=== PATIENT | female | born 1985 | race Caucasian/White ===

== ENCOUNTER 2020-07-22 12:42 | Outpatient (CLI) | payer OTHER ==
[2020-07-22 13:23] LABS: Basophils % (Auto) 0.6 % (0.0-1.8); Eosinophils # (Auto) 0.1 K/mm3 (0.0-0.4); Hematocrit 43.4 % (30.3-42.9); Hemoglobin 14.7 gm/dl (10.1-14.3); Lymphocytes # (Auto) 2.1 K/mm3 (1.2-5.4); Lymphocytes % (Auto) 38.7 % (13.4-35.0); Mean Corpuscular HGB Conc 34 % (30-34); Mean Corpuscular Volume 95 fl (79-97); Monocytes # (Auto) 0.4 K/mm3 (0.0-0.8); Monocytes % (Auto) 7.4 % (0.0-7.3); Platelet Count 182 K/mm3 (140-440); Red Blood Count 4.57 M/mm3 (3.65-5.03); Red Cell Distribution Width 13.1 % (13.2-15.2)
[2020-07-22 13:43] LABS: % Iron Saturation 28.27 %; Alanine Aminotransferase 19 units/L (7-56); Albumin 4.3 g/dL (3.9-5); Blood Urea Nitrogen 14 mg/dL (7-17); Calcium 9.4 mg/dL (8.4-10.2); Hemolysis Index 5; Iron 95 ug/dL (37-170); LDL Cholesterol,Direct 120 mg/dL (50-130); Total Iron Binding Capacity 336 mcg/dL (250-450)
[2020-07-22 13:44] LABS: BUN/Creatinine Ratio 20
[2020-07-22 14:54] LABS: Chol/HDL Ratio 3.52 %; HDL Cholesterol 50 mg/dL (40-59)
[2020-07-24 16:39] LABS: Vitamin D, 25-OH, D2 <4 ng/mL
== END 2020-07-22 12:43 | disposition home or self-care (01) ==
LOC: LAB 12:42
PROVIDERS: ATTEND Surgery
DX: E11.9 Type 2 diabetes mellitus without complications (principal); E66.01 Morbid (severe) obesity due to excess calories; K30 Functional dyspepsia; Z98.84 Bariatric surgery status
CPT/HCPCS: 36415; 80053; 80061; 82306; 82607; 82728; 83036; 83550; 84425; 84443; 85025

== ENCOUNTER 2020-08-15 09:27 | Outpatient (CLI) | payer OTHER ==
--- NOTE | 2020-08-15 10:54 | Electrocardiograph Report ---
[facility] Test Date: 2020-08-15 Test Time: 10:22:46 Pat [facility]: Gender: F Hall Monitor: BEBE : 1985 Requested By: CHAPINCITO JEFFRIES Order Number: [id number] Reading MD: Nestor Estrdaa Measurements Intervals [place] Rate: 68 P: 34 VT: 127 QRS: -1 QRSD: 93 T: -6 QT: 394 QTc: 419 Interpretive Statements Sinus rhythm No previous ECG available for comparison Electronically Signed On 08-15-2020 10:54:27 EDT by Nestor Estrada
--- NOTE | 2020-08-15 14:25 | Treadmill Report ---
DATE OF SERVICE: 08/15/2020 TREADMILL STRESS TEST Preop baseline EKG, sinus rhythm, T-wave inversion in inferior leads. Baseline heart rate 71, blood pressure 120/73. DESCRIPTION OF PROCEDURE: The patient exercised for a Rayshawn protocol for 9 minutes. The patient achieved a maximum heart rate 91%, which is 181 beats per minute. Max blood pressure 156/78. There were no EKG changes suggestive of ischemia, stopped secondary to shortness of breath. SUMMARY: 1. Negative treadmill EKG. 2. Good exercise capacity 9 minutes Rayshawn protocol. 3. No exaggerated BP response to exercise. 4. No EKG changes or arrhythmias suggestive of any ischemia. TID: [id number] RECEIPT: [id number] COURTNEY/AMILCAR
--- NOTE | 2020-08-23 10:35 | Treadmill Report ---
[facility] Test Date: 2020-08-15 Test Time: 10:52:00 [facility]: Room: Gender: F Cloth Handler: Lilian Rico : 1985 Requested By: CHAPINCITO JEFFRIES Order Number: [id number] Reading MD: Joe Mujica Interpretive Statements Electronically Signed On 08-23-2020 10:35:25 EDT by Joe Mujica
== END 2020-08-15 09:28 | disposition home or self-care (01) ==
LOC: CARD 09:27
PROVIDERS: ATTEND Surgery
DX: Z01.818 Encounter for other preprocedural examination (principal)
CPT/HCPCS: 93005; 93017

== ENCOUNTER 2020-11-21 07:16 | Outpatient (CLI) | payer OTHER ==
--- NOTE | 2020-11-21 09:05 | Fluoroscopy Report ---
. Barium swallow Indication: MORBID OBESITY. Technique: Single and double contrast barium technique utilized to evaluate the esophagus. Findings: No mucosal irregularity, mass, mass effect, or critical stenosis. There were mild abnormal tertiary contractions as seen with dysmotility. No gastroesophageal reflux. Impression: Mild esophageal dysmotility but no appreciable reflux or other abnormality. Fluoroscopic time: 0.7 minutes Number of fluoroscopic images: 8 Signer Name: Horacio Sherman MD Signed: 11/21/2020 9:00 AM Workstation Name: [id number]
== END 2020-11-21 07:17 | disposition home or self-care (01) ==
LOC: FLUORO 07:16
PROVIDERS: ATTEND Surgery
DX: E66.01 Morbid (severe) obesity due to excess calories (principal)
CPT/HCPCS: 74220

== ENCOUNTER → 2020-12-10 | Outpatient (CLI) | payer OTHER | END | disposition home or self-care (01) | LOC: SLR 11:00 | PROVIDERS: ATTEND Surgery | DX: G47.30 Sleep apnea, unspecified (principal) | CPT/HCPCS: G0399 ==

== ENCOUNTER 2021-02-02 08:18 | Observation (INO) | payer OTHER ==
[2021-01-30 10:20] LABS: Hematocrit 43.1 % (30.3-42.9); Hemoglobin 14.1 gm/dl (10.1-14.3); Mean Corpuscular HGB Conc 33 % (30-34); Mean Corpuscular Volume 95 fl (79-97); Platelet Count 207 K/mm3 (140-440); Red Blood Count 4.55 M/mm3 (3.65-5.03); Red Cell Distribution Width 12.9 % (13.2-15.2)
[2021-01-30 10:36] LABS: Alanine Aminotransferase 24 units/L (7-56); Albumin 4.6 g/dL (3.9-5); BUN/Creatinine Ratio 28; Blood Urea Nitrogen 17 mg/dL (7-17); Calcium 9.2 mg/dL (8.4-10.2); Hemolysis Index 5
--- NOTE | 2021-01-30 13:36 | Anesthesia Consultation ---
Anesthesia Consult and Med Hx Date of service: 02/02/21 - Airway Anesthetic Teeth Evaluation: Chipped (Missing) ROM Head & Neck: Adequate Mental/Hyoid Distance: Adequate Mallampati Class: Class II Intubation Access Assessment: Good - Pre-Operative Health Status ASA Pre-Surgery Classification: ASA3 Proposed Anesthetic Plan: General - Pulmonary Hx Sleep Apnea: Yes (Waiting for CPAP) - Central Nervous System Hx Psychiatric Problems: No - Gastrointestinal Hx Gastroesophageal Reflux Disease: No - Endocrine Hx Non-Insulin Dependent Diabetes: No - Other Systems Hx Alcohol Use: Yes (Occas) Hx Cancer: No Hx Obesity: Yes - Additional Comments Anesthesia Medical History Comments: Malagasy speaking; daughter present to interpret. Chart reviewed-cardiac/pulmonary/psych
[2021-02-02] MEDS: ACETAMINOPHEN IV 1,000 MG/100 ML BOTTLE IV NR ×2 (07:30→21:00)
[~2021-02-02 08:18] MED LIST: BUPIVACAINE/PF (0.25%) 2.5 MG/ML 30 ML VIAL INFILTRATI ONE; ENOXAPARIN 40 MG/0.4 ML INJ SUB-Q NR; GABAPENTIN 500 MG/10 ML ORAL LIQD PO NR; HYDROmorphone 1 MG/1 ML INJ IV PRN; KETAMINE/STERILE WATER 50 MG/ML SYRINGE ONE; LACTATED RINGERS 1,000 ML IV SCH; LIDOCAINE 1%/EPINEPHRINE 1:100,000 VIAL (20 ML) INFILTRATI ONE; LIDOCAINE MPF (2%) 20 MG/1 ML VIAL 5 ML ONE; MAGNESIUM SULFATE 4 GM/100 ML BAG IV ONE; ONDANSETRON 4 MG/2 ML INJ IV PRN; PIPERACIL/TAZOBACTA 4.5/NS 100 4.5 GM/100 ML VIAL IV SCH; ROCURONIUM 50 MG/5 ML INJ IV ONE; SCOPOLAMINE TRANSDERMAL PATCH 72 HR TD ONE; SODIUM CHLORIDE P/F VIAL 10 ML 10 ML ONE; SUGAMMADEX SODIUM 200 MG/2 ML VIAL IV ONE; dexAMETHasone 20 MG/5 ML VIAL ONE; methOCARBAMOL 1,000 MG in SODIUM CHLORIDE 0.9% 250ML 250 ML IV ONE
[2021-02-02] MEDS ORDERED: LIDOCAINE 1%/EPINEPHRINE 1:100,000 VIAL (20 ML) INFILTRATI ONE (08:32)
[2021-02-02] MEDS ORDERED: BUPIVACAINE/PF (0.25%) 2.5 MG/ML 30 ML VIAL INFILTRATI ONE (08:34)
[2021-02-02] MEDS ORDERED: SODIUM CHLORIDE 0.9% IRR 1,500 ML BOTTLE IR ONE (08:34)
[2021-02-02] MEDS ORDERED: ONDANSETRON 4 MG/2 ML INJ ONE (08:48)
[2021-02-02] MEDS ORDERED: dexAMETHasone 20 MG/5 ML VIAL ONE (08:48)
--- NOTE | 2021-02-02 09:16 | Anesthesia Day of Surgery ---
Anesthesia Day of Surgery - Day of Surgery Patient Examined: Yes Patient H&P Reviewed: Yes Patient is NPO: Yes
[2021-02-02] MEDS ORDERED: SODIUM CHLORIDE P/F VIAL 10 ML 10 ML ONE (09:36)
[2021-02-02] MEDS ORDERED: SCOPOLAMINE TRANSDERMAL PATCH 72 HR TD SCH (10:00)
--- NOTE | 2021-02-02 10:08 | Operative Report ---
Operative Report Operative Report: DATE:02/02/2021 Surgeon: El Ramos MD Audio Tape Librarian surgeon: Pam White CSA MD Pre-op Dx: morbid obesity Post-op Dx: morbid obesity Procedure: 1. laparoscopic sleeve gastrectomy, Anesthesia: GETA, TAP block EBL: <10ml Specimen: gastric remnant Complication: none immediate Indication: 35 year old female with a history of morbid obesity . Pt is here for sleeve gastrectomy for weight loss to achieve healthier weight. She expressed understanding of the risks and benefits. PROCEDURE IN DETAIL: After consent was reviewed, patient was taken back to the operating room, where patient was placed supine on the bed with both arms out. The patient's legs were doubly strapped to the bed. Patient had a foot board in place. Patient had a body warmer placed by anesthesia. General anesthesia was induced with successful endotracheal intubation. Patient was then prepped and draped in normal sterile surgical fashion. After a time-out was called, I made a stab incision in the left subcostal area and placed a Veress needle through this incision and insufflated the abdomen to 15 mmHg pressure. I then counted down a handsbreadth below the xiphoid process in the midline and slightly left lateral injected local anesthetic and made about 1 cm transverse incision. I then used a 5-mm Optiview trocar to enter into the abdomen. There was no gross injury to any intra-abdominal structures. I then placed a 30-degree scope through this port and inspected the abdomen. I then placed a 5-mm port in the right upper quadrant, and 1 epigastric area below the costovertebral angle. I then placed a 15-mm port about a handsbreadth in the right mid abdomen. After which a 5mm port was placed in left upper quadrant port along the anterior axillary line in a similar fashion. A liver retractor was placed to the epigastric port to elevate the left lateral lobe and liver. The anterior gastric fat pad was excised. Starting approximately 6 cm proximal to the pylorus, using a LigaSure device the short gastrics were taken all the way to the left gabrielle. Once the lateral portion of the stomach was mobile anesthesia passed a 40 Greek bougie along the medial aspect to act as a stent. Using serial firings of endoscopic stapler green, followed by 4 blue, the lateral portion of the stomach was transected making sure to did not close to the 2 cm to the incisura. All staple loads were supported with Ethicon buttress strips. The sleeve stomach was seen to be without kink obstruction or twisting. The pressure was decreased to 10 mmHg. The staple line was inspected for approximately 5 minutes. There was no significant bleeding appreciated except for a slight loose at the most distal portion of the staple line. Bleeding was minimal and easily controlled with minimal cautery. The liver retractor was removed. This was after the gastric remnant was grasped and pulled into the 15 mm trocar site. The stomach was extracted via the 15 mm trocar site. After the fascia had to be stretched with a Catina clamp to easily remove the stomach, the fascia was closed using a kristyn karina device at the level of the fascia with an 0 PDS. trocars were removed under direct visualization. A TAP block was performed in transverse abdominis plane at the mid axillary line bilaterally using 60cc of 0.25% marcaine. All skin incisions were closed with 4-0 Monocryl followed by Dermabond. Patient was awoken, extubated, and taken to recovery stable condition. All counts were correct.
[2021-02-02] MEDS ORDERED: hydrALAZINE 20 MG/1 ML INJ IV PRN (11:00)
[2021-02-02] MEDS ORDERED: HYDROmorphone 1 MG/1 ML INJ IV PRN (11:00)
[2021-02-02] MEDS ORDERED: ONDANSETRON 4 MG/2 ML INJ IV PRN (11:00)
[2021-02-02] MEDS ORDERED: MORPHINE 2 MG/1 ML INJ IV PRN (11:00)
[2021-02-02] MEDS ORDERED: SIMETHICONE 80 MG CHEW TAB PO PRN (11:00)
[2021-02-02] MEDS ORDERED: HYDROcodone/Acetaminophen 7.5-325MG-15ML ORAL LIQD PO PRN (11:00)
[2021-02-02] MEDS ORDERED: METOCLOPRAMIDE 10 MG/2 ML INJ IV PRN (11:00)
[2021-02-02] MEDS: KETOROLAC 30 MG/1 ML INJ IV SCH ×3 (11:23→23:52)
--- NOTE | 2021-02-02 13:03 | Post Anesthesia Evaluation ---
- Post Anesthesia Evaluation Patient Participated: Yes Airway Patent: Yes Stable Respiratory Function: Yes Nausea/Vomiting: No Temp > 96.8F: Yes Pain Manageable: Yes Adequeate Hydration: Yes Anesthesia Complications: No
[2021-02-02] MEDS: PANTOPRAZOLE 40 MG INJ IV SCH (13:38)
[2021-02-02] MEDS: ACETAMINOPHEN IV 1,000 MG/100 ML BOTTLE IV SCH ×2 (14:05→20:53)
[2021-02-02] MEDS: PIPERACILLIN/TAZOBACTAM 3.375 3.375 GM/50 ML BAG IV SCH ×2 (14:23→22:19)
[2021-02-03] MEDS: ACETAMINOPHEN IV 1,000 MG/100 ML BOTTLE IV SCH ×2 (02:25→08:29)
[2021-02-03] MEDS: KETOROLAC 30 MG/1 ML INJ IV SCH ×4 (04:53→22:11)
[2021-02-03] MEDS: LACTATED RINGERS 1,000 ML IV SCH ×3 (04:55→22:13)
[2021-02-03] MEDS: PIPERACILLIN/TAZOBACTAM 3.375 3.375 GM/50 ML BAG IV SCH (05:38)
[2021-02-03 07:34] LABS: Basophils % (Auto) 0.3 % (0.0-1.8); Hemoglobin 13.8 gm/dl (10.1-14.3); Lymphocytes # (Auto) 1.2 K/mm3 (1.2-5.4); Lymphocytes % (Auto) 10.4 % (13.4-35.0); Mean Corpuscular HGB Conc 32 % (30-34); Mean Corpuscular Volume 96 fl (79-97); Monocytes # (Auto) 0.9 K/mm3 (0.0-0.8); Monocytes % (Auto) 7.9 % (0.0-7.3); Platelet Count 187 K/mm3 (140-440); Red Cell Distribution Width 13.5 % (13.2-15.2)
[2021-02-03 08:00] LABS: Alanine Aminotransferase 25 units/L (7-56); Blood Urea Nitrogen 6 mg/dL (7-17); Calcium 8.7 mg/dL (8.4-10.2); Hemolysis Index 8
[2021-02-03 08:33] LABS: BUN/Creatinine Ratio 9
[2021-02-03] MEDS: ENOXAPARIN 40 MG/0.4 ML INJ SUB-Q SCH (09:21)
[2021-02-03] MEDS: PANTOPRAZOLE 40 MG INJ IV SCH (09:21)
--- NOTE | 2021-02-03 09:25 | Post Anesthesia Evaluation ---
- Post Anesthesia Evaluation Patient Participated: Yes Airway Patent: Yes Stable Respiratory Function: Yes Nausea/Vomiting: No Temp > 96.8F: Yes Pain Manageable: Yes Adequeate Hydration: Yes Anesthesia Complications: No Block Receding Appropriately: Not Applicable Patient on Ventilator: No Other Comments: Ambulated, pain is well under control
--- NOTE | 2021-02-03 12:52 | Discharge Summary ---
Providers - Providers Date of Admission: 02/02/21 08:20 Date of discharge: 02/04/21 Attending physician: CHAPINCITO JEFFRIES MD 02/02/21 09:45 Physical Therapy Evaluation and Treat [CONS] Routine Comment: Reason For Exam: post op bariatric Primary care physician: JEREMY RAMIREZ Hospitalization Reason for admission: s/p bariatric surgery Condition: Good Procedures: lap gastric sleeve Hospital course: pt had an uneventful laparoscopic gastric sleeve. She was admitted afterwards f or observation and follow up care. She remained afebrile and stable with her vital and labs within acceptable limits. She was tolerating clear liquids better by postoperative day 2, she was ambulating well with adequate pain control. She was discharged to home on postoperative day #2 with no gross clinical signs of leak or bleeding. Patient will follow up in the office within 2 weeks Disposition: 01 HOME / SELF CARE / HOMELESS Final Discharge Diagnosis (Prints w/discharge instructions): morbid obesity, MORENO Core Measure Documentation - Palliative Care Palliative Care/ Comfort Measures: Not Applicable - Core Measures Any of the following diagnoses?: none Exam - Constitutional Vitals: Temp Pulse Resp BP Pulse Ox 98.6 F 92 H 18 141/88 100 02/03/21 08:01 02/03/21 08:01 02/03/21 08:01 02/03/21 08:01 02/03/21 08:01 General appearance: Present: no acute distress - EENT Eyes: Present: PERRL - Neck Neck: Present: supple - Respiratory Respiratory effort: normal - Cardiovascular Heart Sounds: Present: S1 & S2 - Extremities Extremities: no ischemia - Abdominal General gastrointestinal: Present: other (soft, appropriately tender to palpation, incisions c/d/i) Plan Activity: advance as tolerated Diet: clear liquids Wound: open to air, keep clean and dry Follow up with: JEREMY RAMIREZ MD [Primary Care Provider] - 7 Days
--- NOTE | 2021-02-03 15:56 | Progress Note ---
Assessment and Plan POD#1 s/p lap gastric sleeve. Afebrile and stable but not drinking enough to feel comfortable to discharge today. If does well overnight will discharge tomorrow. Encourage small more frequent sips of liquids. Subjective Date of service: 02/03/21 Narrative: no acute events overnight. Pt says she feels ok but she is not drinking enough, likely due to discomfort she feels. Denies n/v. Objective Vital Signs - 12hr 02/03/21 02/03/21 02/03/21 04:27 08:01 11:57 Temperature 98.6 F 98.8 F Pulse Rate 92 H 98 H Respiratory 18 18 Rate Blood Pressure 141/88 148/94 O2 Sat by Pulse 99 100 98 Oximetry - General physical appearance no distress, no pain - Eyes PERRL - ENT no hearing loss - Respiratory normal expansion, normal respiratory effort - Abdomen other (incisions c/d/i, appropriately tender to palpation ) - Labs 02/03/21 06:37 02/03/21 06:37 Diabetes panel 02/03/21 Range/Units 06:37 Sodium 137 (137-145) mmol/L Potassium 4.5 (3.6-5.0) mmol/L Chloride 104.3 (98-107) mmol/L Carbon Dioxide 17 L (22-30) mmol/L BUN 6 L (7-17) mg/dL Creatinine 0.7 (0.6-1.2) mg/dL Glucose 89 (65-100) mg/dL Calcium 8.7 (8.4-10.2) mg/dL AST 28 (5-40) units/L ALT 25 (7-56) units/L Alkaline Phosphatase 50 (35-129) units/L Total Protein 6.9 (6.3-8.2) g/dL Albumin 4.0 (3.9-5) g/dL Calcium panel 02/03/21 Range/Units 06:37 Calcium 8.7 (8.4-10.2) mg/dL Albumin 4.0 (3.9-5) g/dL Pituitary panel 02/03/21 Range/Units 06:37 Sodium 137 (137-145) mmol/L Potassium 4.5 (3.6-5.0) mmol/L Chloride 104.3 (98-107) mmol/L Carbon Dioxide 17 L (22-30) mmol/L BUN 6 L (7-17) mg/dL Creatinine 0.7 (0.6-1.2) mg/dL Glucose 89 (65-100) mg/dL Calcium 8.7 (8.4-10.2) mg/dL Adrenal panel 02/03/21 Range/Units 06:37 Sodium 137 (137-145) mmol/L Potassium 4.5 (3.6-5.0) mmol/L Chloride 104.3 (98-107) mmol/L Carbon Dioxide 17 L (22-30) mmol/L BUN 6 L (7-17) mg/dL Creatinine 0.7 (0.6-1.2) mg/dL Glucose 89 (65-100) mg/dL Calcium 8.7 (8.4-10.2) mg/dL Total Bilirubin 0.40 (0.1-1.2) mg/dL AST 28 (5-40) units/L ALT 25 (7-56) units/L Alkaline Phosphatase 50 (35-129) units/L Total Protein 6.9 (6.3-8.2) g/dL Albumin 4.0 (3.9-5) g/dL
[2021-02-04] MEDS: KETOROLAC 30 MG/1 ML INJ IV SCH (04:27)
[2021-02-04] MEDS: LACTATED RINGERS 1,000 ML IV SCH (04:31)
[2021-02-04 06:56] LABS: Basophils % (Auto) 0.3 % (0.0-1.8); Hemoglobin 13.1 gm/dl (10.1-14.3); Lymphocytes # (Auto) 1.5 K/mm3 (1.2-5.4); Lymphocytes % (Auto) 19.2 % (13.4-35.0); Mean Corpuscular HGB Conc 33 % (30-34); Mean Corpuscular Volume 94 fl (79-97); Monocytes # (Auto) 0.5 K/mm3 (0.0-0.8); Monocytes % (Auto) 6.7 % (0.0-7.3); Platelet Count 167 K/mm3 (140-440); Red Blood Count 4.25 M/mm3 (3.65-5.03); Red Cell Distribution Width 13.2 % (13.2-15.2)
--- OUTSIDE RECORDS SUMMARY | 2021-02-04 07:09 | External Medical Summary ---
:1985 Author Organization [facility], [facility] Address [address] [address] Care Team Providers Name Role Phone El Ramos Unavailable [phone] PROBLEMS Type Condition ICD9-CM ZLE46-EU Onset Condition W/U Status Risk SNOM ED Notes Code Code Dates Status Code Problem Functional K30 Active confirmed [id number] dyspepsia Problem Sleep G47.9 Active confirmed 76821313 disorder, unspecified Problem Vitamin D E55.9 Active confirmed 57227777 deficiency, unspecified Problem Sleep apnea, G47.30 Active confirmed 3200679 6 unspecified Problem Morbid E66.01 Active confirmed 978502913 (severe) obesity due to excess calories Problem Body mass Z68.36 Active confirmed 8310469549 index [BMI] 70518 36.0-36.9, adult Problem Dietary Z71.3 Active confirmed 126341632 counseling and surveillance Problem Hyperlipidemi E78.5 Active confirmed 816581 04 a, unspecified ALLERGIES No Known Allergies ENCOUNTERS from 1985 to 2021-01-30 Encounter Location Date Provider Diagnosis [facility] Dec, El Ramos Morbi d (severe) [address] obesity due to excess of [facility] [place], [place] calorie s E66.01 and [id number] Sleep apnea, unspecified G47 .30 IMMUNIZATIONS No Information SOCIAL HISTORY Tobacco Use: Social History Observation Description Date Details (start date - stop date) Never Smoker Sex Assigned At : Social History Observation Description Sex Assigned At Unknown Smoking Question Answer Notes Are you a: never smoker REASON FOR REFERRAL from 1985 to 2021-01-30 Reason Gastric Sleeve Diagnosis 1 Morbid (severe) obesity due to excess calories (E66.01) Diagnosis 2 Functional dyspepsia (K30) Diagnosis 3 Sleep disorder, unspecified (G47.9) Diagnosis 4 Vitamin D deficiency, unspec ified (E55.9) Diagnosis 5 Hyperlipidemia, unspecified (E78.5) Diagnosis 6 Dietary counseling and surve illance (Z71.3) Diagnosis 7 Body mass index [BMI] 36.0-3 6.9, adult (Z68.36) Diagnosis 8 Elevated blood-pressure read ing, without diagnosis of hypertension (R03.0) Diagnosis 9 Sleep apnea, unspecified (G4 7.30) Referral Organization [facility] Referring Provider First Name El Referring Provider Last Name Richard Referring Provider Specialty Surgery Referred Provider [facility], - Referral Priority Routine VITAL SIGNS Height 59 in Dec, Weight 177.0 lbs Dec, Temperature 98 degrees Fahrenheit Dec, BMI 35.75 kg/m2 Dec, Blood pressure systolic 124 mm Hg Dec, Blood pressure diastolic 90 mm Hg Dec, MEDICATIONS Medication SIG (Take, Route, Notes Start Date End Date Status Frequency, Duration) Fluticasone Propionate 1 spray in each nostril Oct, Active 50 MCG/ACT Nasally Twice a day for 14 day(s) HYDROcodone-Acetaminophe 15 ml as needed orally Dec, 21 5 Jan, 2021 Active n 7.5-325 MG/15ML every 6 hrs for 7 days Ondansetron 4 MG 1-2 tablet on the Dec, Active tongue and allow to dissolve Orally q 4-6 hours prn nausea for 30 day(s) Vitamin D 1 capsule Orally once a A ctive (Ergocalciferol) 1.25 MG week for 90 days (10[address] UT) Omeprazole 40 MG 1 capsule 30 minutes Dec, Active before morning meal Orally Once a day for 30 day(s) PROCEDURES No Information RESULTS No Results REASON FOR VISIT preop sleeve MEDICAL (GENERAL) HISTORY Type Description Date Medical History htn Medical History hyperlipidemia Medical History High blood pressure Medical History Chicken pox Medical History High cholesterol Medical History Vision Problem Medical History mumps Surgical History No know Surgical history Goals Section No Information Health Concerns No Information MEDICAL EQUIPMENT No Information MENTAL STATUS No Information FUNCTIONAL STATUS No Information ASSESSMENTS Encounter Date Diagnosis Assessment Notes Treatment Notes Treatm ent Clinical Notes Dec, Morbid (severe) An hour was spent obesity due to with patient excess calories reinforcing diet, (ICD-10 - E66.01) vitamin requirements and lifestyle education, A quiz was administered and reviewed to verify understanding of intended procedure and post operative care. Consent forms were reviewed with patient and signed answering all questions, Pre-operative labs were ordered. Dec, Sleep apnea, Continue use of CPAP unspecified machine, should (ICD-10 - G47.30) resolve or greatly improve after weight loss surgery, and will titrate CPAP machine as tolerated. PLAN OF TREATMENT Medication Medication Name Sig Start Date Stop Date Omeprazole 40 MG 1 capsule 30 minutes before Dec, morning meal Orally Once a day for 30 day(s) Ondansetron 4 MG 1-2 tablet on the tongue and Dec, allow to dissolve Orally q 4-6 hours prn nausea for 30 day(s) HYDROcodone-Acetaminophen 15 ml as needed orally every Dec, 2 021 5 Jan, 2021 7.5-325 MG/15ML 6 hrs for 7 days Treatment Notes Assessment Notes Clinical Notes Morbid (severe) obesity due to An hour was spent with patien t excess calories reinforcing diet, vitamin requirements and lifestyle education, A quiz was administered and reviewed to verify understanding of intended procedure and post operative care. Consent forms were reviewed with patient and signed answering all questions, Pre-operative labs were ordered. Sleep apnea, unspecified Continue use of CPAP machine, shoul d resolve or greatly improve after weight loss surgery, and will titrate CPAP machine as tolerated. Referrals Referral Date Details Gastric Sleeve Next Appt Details for surgery Reason: Provider Name:El Ramos, 2020-11-0 8 09:30:00 AM, [address] [facility], [place], [place], [address], Insurance Providers Payer Name Payer Payer Insured Name Patient Coverage Covera ge End Address Phone Relationship to Start Date Arturo e Insured [employer] [address] [address] [phone] [place] [address] [place] [facility] [address] [id number] [address]
[2021-02-04 07:15] LABS: Alanine Aminotransferase 18 units/L (7-56); Albumin 3.6 g/dL (3.9-5); BUN/Creatinine Ratio 10; Blood Urea Nitrogen 5 mg/dL (7-17); Calcium 8.6 mg/dL (8.4-10.2); Hemolysis Index 1
[2021-02-04 08:28] VITALS: BP 117/70
[2021-02-04] MEDS: ENOXAPARIN 40 MG/0.4 ML INJ SUB-Q SCH (10:55)
[2021-02-04] MEDS: PANTOPRAZOLE 40 MG INJ IV SCH (10:56)
== END 2021-02-04 14:20 | disposition home or self-care (01) ==
LOC: OR 08:18 → 4A 08:20 → INTOOBSV 08:20
PROVIDERS: ADMIT Surgery; ATTEND Surgery
DX: E66.01 Morbid (severe) obesity due to excess calories (principal); Z20.822 Contact with and (suspected) exposure to COVID-19; K21.9 Gastro-esophageal reflux disease without esophagitis; I10 Essential (primary) hypertension; G47.30 Sleep apnea, unspecified; E78.5 Hyperlipidemia, unspecified; E78.00 Pure hypercholesterolemia, unspecified; H53.9 Unspecified visual disturbance; B26.9 Mumps without complication; Z68.38 Body mass index [BMI] 38.0-38.9, adult; Z79.899 Other long term (current) drug therapy; Z98.890 Other specified postprocedural states; Z98.84 Bariatric surgery status
CPT/HCPCS: 36415; 43775; 80053; 84703; 85025; 85027; 88307; 88342; 96365; 96366; 96367; 96372; 96375; 96376; C9113; G0378; J0131; J0360; J1100; J1650; J1885; J2405; J2543; J2704; J2800; J3475; J3490; J7050; J7120; U0003

== ENCOUNTER 2021-03-02 10:39 | Outpatient (CLI) | payer OTHER ==
[2021-03-02 11:23] LABS: Basophils # (Auto) 0.1 K/mm3 (0.0-0.1); Basophils % (Auto) 1.1 % (0.0-1.8); Eosinophils % (Auto) 0.9 % (0.0-4.3); Hematocrit 45.6 % (30.3-42.9); Hemoglobin 14.7 gm/dl (10.1-14.3); Lymphocytes # (Auto) 1.3 K/mm3 (1.2-5.4); Lymphocytes % (Auto) 27.9 % (13.4-35.0); Mean Corpuscular HGB Conc 32 % (30-34); Mean Corpuscular Volume 94 fl (79-97); Monocytes # (Auto) 0.4 K/mm3 (0.0-0.8); Monocytes % (Auto) 7.4 % (0.0-7.3); Platelet Count 179 K/mm3 (140-440); Red Blood Count 4.83 M/mm3 (3.65-5.03); Red Cell Distribution Width 13.1 % (13.2-15.2)
[2021-03-02 11:38] LABS: Alanine Aminotransferase 27 units/L (7-56); Albumin 4.4 g/dL (3.9-5); Blood Urea Nitrogen 10 mg/dL (7-17); Calcium 9.5 mg/dL (8.4-10.2); Chol/HDL Ratio 4.09 %; HDL Cholesterol 41 mg/dL (40-59); Hemolysis Index 2; Iron 80 ug/dL (37-170); LDL Cholesterol,Direct 108 mg/dL (50-130); Total Iron Binding Capacity 247 mcg/dL (250-450)
[2021-03-02 11:40] LABS: BUN/Creatinine Ratio 17
== END 2021-03-02 10:40 | disposition home or self-care (01) ==
LOC: LAB 10:39
PROVIDERS: ATTEND Surgery
DX: E55.9 Vitamin D deficiency, unspecified (principal); K30 Functional dyspepsia; K90.9 Intestinal malabsorption, unspecified; E66.01 Morbid (severe) obesity due to excess calories; Z98.84 Bariatric surgery status
CPT/HCPCS: 36415; 80053; 80061; 82306; 82607; 82728; 83550; 83970; 84425; 84443; 85025

== ENCOUNTER 2021-08-21 10:00 | Outpatient (CLI) | payer OTHER ==
[2021-08-21 10:50] LABS: Basophils # (Auto) 0.1 K/mm3 (0.0-0.1); Basophils % (Auto) 1.6 % (0.0-1.8); Eosinophils # (Auto) 0.1 K/mm3 (0.0-0.4); Eosinophils % (Auto) 2.1 % (0.0-4.3); Hematocrit 40.6 % (30.3-42.9); Hemoglobin 13.5 gm/dl (10.1-14.3); Lymphocytes # (Auto) 1.8 K/mm3 (1.2-5.4); Lymphocytes % (Auto) 41.3 % (13.4-35.0); Mean Corpuscular HGB Conc 33 % (30-34); Mean Corpuscular Volume 95 fl (79-97); Monocytes # (Auto) 0.3 K/mm3 (0.0-0.8); Monocytes % (Auto) 7.5 % (0.0-7.3); Platelet Count 164 K/mm3 (140-440); Red Blood Count 4.25 M/mm3 (3.65-5.03)
[2021-08-21 11:18] LABS: % Iron Saturation 28.67 %; Alanine Aminotransferase 14 units/L (7-56); Albumin 4.4 g/dL (3.9-5); Blood Urea Nitrogen 14 mg/dL (7-17); Calcium 9.1 mg/dL (8.4-10.2); Chol/HDL Ratio 2.94 %; HDL Cholesterol 57 mg/dL (40-59); Hemolysis Index 8; Iron 82 ug/dL (37-170); LDL Cholesterol,Direct 100 mg/dL (50-130); Total Iron Binding Capacity 286 mcg/dL (250-450)
[2021-08-21 11:19] LABS: BUN/Creatinine Ratio 23
== END 2021-08-21 10:01 | disposition home or self-care (01) ==
LOC: LAB 10:00
PROVIDERS: ATTEND Surgery
DX: Z13.21 Encounter for screening for nutritional disorder (principal); Z13.29 Encounter for screening for other suspected endocrine disorder; E55.9 Vitamin D deficiency, unspecified; E66.01 Morbid (severe) obesity due to excess calories; K30 Functional dyspepsia; K90.9 Intestinal malabsorption, unspecified; Z98.84 Bariatric surgery status
CPT/HCPCS: 36415; 80053; 80061; 82306; 82607; 82728; 83550; 84425; 84443; 85025